=== PATIENT | female | born 1965 | race Caucasian/White ===

== ENCOUNTER 2017-12-30 14:58 | Emergency (ER) | payer OTHER ==
[2017-12-30] MEDS: NAPROXEN 500 MG TAB PO (15:53)
== END 2017-12-30 17:55 | disposition home or self-care (01) ==
LOC: NEPD 14:58
DX: M79.622 Pain in left upper arm (principal); M54.2 Cervicalgia
CPT/HCPCS: 71101; 73060; 99284